=== PATIENT | female | born 1980 ===

== ENCOUNTER 2016-08-31 23:29 | Emergency (ER) | payer SELFPAY ==
[2016-09-01] MEDS ORDERED: PROVENTIL IH ONE ×2 (01:00→01:04)
[2016-09-01 01:02] VITALS: BP 149/99
== END 2016-09-01 06:58 | disposition left against medical advice (07) ==
LOC: ED 23:29
DX: J45.909 Unspecified asthma, uncomplicated (principal); Z53.21 Procedure and treatment not carried out due to patient leaving prior to being seen by health care provider